=== PATIENT | female | born 1985 | race American Indian/Alaskan Native ===

== ENCOUNTER 2017-12-01 11:44 | Emergency (ER) | payer MEDICAID ==
--- NOTE | 2017-12-01 12:19 | Emergency Department Report ---
Blank Doc - Documentation Documentation: Patient is a 32-year-old Female who states she took a test at home several weeks ago that was positive she went for her first [facility] [facility] appointment was sent here because of vaginal bleeding. Patient states she is initially had some mild spotting but now is having some heavier bleeding. Patient states he passed one nickel size clot this morning. Patient is a pressure sensation in the suprapubic region. Patient's approximate 4-5 weeks . Patient is denying any fevers chills nausea vomiting diarrhea at this time. Patient will have a beta Quant ultrasound urinalysis and ABO Rh done
[2017-12-01 13:08] LABS: Bacteria,Urine 1+ /HPF (Negative); Bilirubin,Urine NEG (Negative); Blood,Urine NEG (Negative); Color,Urine Yellow (Yellow); Mucus,Urine 1+ /HPF; Protein,Urine <15 mg/dL mg/dL (Negative); Urobilinogen,Urine < 2.0 mg/dL (<2.0)
--- NOTE | 2017-12-01 15:51 | Ultrasound Report ---
FINAL REPORT EXAM: US OB TRANSVAGINAL HISTORY: preg with vag bleeding . LMP unknown TECHNIQUE: Ultrasound of the pelvis using transabdominal and transvaginal imaging PRIORS: None. FINDINGS: Uterus: Uterus is enlarged in size and heterogeneous in echogenicity. The uterus measures cm in size. Within the anterior left midbody, there is a 3.2 x 2.4 x 3.0 cm heterogeneous hypoechoic fibroid. In the posterior fundus, there is a heterogeneous hypoechoic fibroid measuring 4.4 x 3.8 x 4.2 cm. The endometrial stripe is 28 mm in thickness which is thickened. There is a single early viable intrauterine gestation noted. Intrauterine gestation: There is a single intrauterine gestation identified with both a pole and yolk sac. heart rate is monitored at 116 BPM using M-mode doppler. [place]-rump length measurement of 0.57 cm corresponds to estimated age 6 weeks 3 days with EDC 07/24/2018. Ovaries: Both ovaries appear enlarged in size and normal in echogenicity with normal blood flow bilaterally. The right ovary measures 4.1 x 2.8 x 1.6 cm and the left ovary measures 6.1 x 4.6 x 3.7 cm in size. Within the right ovary, there is a 1.8 x 1.2 x 1.6 cm hypoechoic focus, probably a complex cyst. There is a minimally complex cyst containing internal debris in the left ovary measuring 4.1 x 3.5 x 4.1 cm. Other: There is no evidence for solid adnexal mass is seen. There is no free fluid in the cul-de-sac. There is trace free fluid in the right adnexa however. IMPRESSION: 1. single intrauterine viable with an approximate age of 6 weeks 3 days. 2. 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 Bilateral complex cysts in the ovaries.
--- NOTE | 2017-12-01 15:52 | Ultrasound Report ---
FINAL REPORT EXAM: US OB < = 14 WEEKS FETUS HISTORY: preg with vag bleeding . LMP unknown TECHNIQUE: Ultrasound of the pelvis using transabdominal and transvaginal imaging PRIORS: None. FINDINGS: Uterus: Uterus is enlarged in size and heterogeneous in echogenicity. The uterus measures 10.5 x 9.2 x 9.0 cm in size. Within the anterior left midbody, there is a 3.2 x 2.4 x 3.0 cm heterogeneous hypoechoic fibroid. In the posterior fundus, there is a heterogeneous hypoechoic fibroid measuring 4.4 x 3.8 x 4.2 cm. The endometrial stripe is 28 mm in thickness which is thickened. There is a single early viable intrauterine gestation noted. Intrauterine gestation: There is a single intrauterine gestation identified with both a pole and yolk sac. heart rate is monitored at 116 BPM using M-mode doppler. [place]-rump length measurement of 0.57 cm corresponds to estimated age 6 weeks 3 days with EDC 07/24/2018. Ovaries: Both ovaries appear enlarged in size and normal in echogenicity with normal blood flow bilaterally. The right ovary measures 4.1 x 2.8 x 1.6 cm and the left ovary measures 6.1 x 4.6 x 3.7 cm in size. Within the right ovary, there is a 1.8 x 1.2 x 1.6 cm hypoechoic focus, probably a complex cyst. There is a minimally complex cyst containing internal debris in the left ovary measuring 4.1 x 3.5 x 4.1 cm. Other: There is no evidence for solid adnexal mass is seen. There is no free fluid in the cul-de-sac. There is trace free fluid in the right adnexa however. IMPRESSION: 1. single intrauterine viable with an approximate age of 6 weeks 3 days. 2. 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 Bilateral complex cysts in the ovaries. As
--- NOTE | 2017-12-01 16:12 | Emergency Department Report ---
ED Female HPI - General Chief complaint: Vaginal Bleeding Stated complaint: ULTRASOUND Time Seen by Provider: 12/01/17 12:14 Source: patient Mode of arrival: Ambulatory Limitations: No Limitations - History of Present Illness Initial comments: Patient is a 32-year-old Female who states she took a test at home several weeks ago that was positive she went for her first [facility] appointment at [facility] and was sent here because of vaginal bleeding. Patient said that they said they didn't have ultrasound machine so she could should come to the emergency room. Patient states she is initially had some mild spotting but now is having some heavier bleeding. Patient states he passed one nickel size clot this morning. Patient is a pressure sensation in the suprapubic region. Patient's approximate 4-5 weeks . Patient is denying any fevers chills nausea vomiting diarrhea at this time. Denies any back pain. Denies any urinary burning and frequency or urgency. Denies any nausea or vomiting. Pain is located to pelvic area 7 out of 10 cramping and an on and off. No medication taken for pain. Patient denies any vaginal discharge and that she is not concerned for STDs. MD Complaint: vaginal bleeding Onset/Timin -: week(s) Location: suprapubic Radiation: non-radiating Severity: severe Severity scale (0 -10): 7 Quality: cramping Consistency: intermittent Improves with: none Worsens with: none Are you Now?: Yes (per home tests) Last Menstrual Period: 10/22/17 EDC: 07/29/18 Associated Symptoms: vaginal bleeding, abdominal pain. denies: vaginal discharge, nausea/vomiting, fever/chills, headaches, loss of appetite, dysuria, hematuria, rash, seizure, shortness of breath, syncope, weakness - Related Data Sexually active: Yes : 2 Para: 1 (10-year-old child) Home Medications Medication Instructions Recorded Confirmed Last Taken Vit Calc,Iron,Folic 1 each PO DAILY 12/01/17 12/01/17 12/01/17 09:00 [ Vitamins] Previous Rx's Medication Instructions Recorded Last Taken Type Cephalexin [Keflex] 500 mg PO Q12HR 7 Days #14 cap 12/01/17 Unknown Rx Allergies Allergy/AdvReac Type Severity Reaction Status Date / Time No Known Allergies Allergy Unverified 09/09/13 11:51 ED Review of Systems ROS: Stated complaint: ULTRASOUND Other details as noted in HPI Constitutional: denies: chills, fever Eyes: denies: eye discharge ENT: denies: throat pain Respiratory: denies: cough, shortness of breath, SOB with exertion, SOB at rest , stridor, wheezing Cardiovascular: denies: chest pain, palpitations, edema, syncope Gastrointestinal: abdominal pain. denies: nausea, vomiting, diarrhea Genitourinary: other (vaginal bleed and). denies: urgency, dysuria, frequency, hematuria, discharge, dyspareunia Musculoskeletal: denies: back pain, joint swelling, arthralgia, myalgia Skin: denies: rash, lesions Neurological: denies: headache, weakness ED Past Medical Hx - Past Medical History Previous Medical History?: Yes Additional medical history: endometriosis - Surgical History Past Surgical History?: Yes Additional Surgical History: 3 surgeries for her endometriosis - Family History Family history: hypertension - Social History Smoking Status: Never Smoker Substance Use Type: Marijuana - Medications Home Medications: Home Medications Medication Instructions Recorded Confirmed Last Taken Type Cephalexin [Keflex] 500 mg PO Q12HR 7 Days #14 cap 12/01/17 Unknown Rx Vit Calc,Iron,Folic 1 each PO DAILY 12/01/17 12/01/17 12/01/17 09:00 History [ Vitamins] ED Physical Exam - General Limitations: No Limitations General appearance: alert, in no apparent distress - Head Head exam: Present: atraumatic, normocephalic, normal inspection - Eye Eye exam: Present: normal appearance, PERRL, EOMI Pupils: Present: normal accommodation - ENT ENT exam: Present: normal exam, normal orophraynx, mucous membranes moist, TM's normal bilaterally, normal external ear exam - Neck Neck exam: Present: normal inspection, full ROM. Absent: tenderness, meningismus, lymphadenopathy - Respiratory Respiratory exam: Present: normal lung sounds bilaterally. Absent: respiratory distress, chest wall tenderness, accessory muscle use - Cardiovascular Cardiovascular Exam: Present: regular rate, normal rhythm, normal heart sounds. Absent: systolic murmur, diastolic murmur - GI/Abdominal GI/Abdominal exam: Present: soft, normal bowel sounds. Absent: distended, tenderness, guarding, rebound, rigid, organomegaly, mass, bruit, pulsatile mass , hernia - Extremities Exam Extremities exam: Present: normal inspection, full ROM, normal capillary refill , other (no clubbing, cyanosis or edema. +2 pulses to all extremities and no neurovascular compromise). Absent: tenderness, pedal edema, joint swelling, calf tenderness - Back Exam Back exam: Present: normal inspection, full ROM, other (ambulates without any difficulties). Absent: tenderness, CVA tenderness (R), CVA tenderness (L), muscle spasm, paraspinal tenderness, vertebral tenderness, rash noted - Neurological Exam Neurological exam: Present: alert, oriented X3, normal gait - Psychiatric Psychiatric exam: Present: normal affect, normal mood - Skin Skin exam: Present: warm, dry, intact, normal color. Absent: rash ED Course Vital Signs 12/01/17 11:49 Temperature 97.7 F Pulse Rate 69 Respiratory 18 Rate Blood Pressure 116/74 O2 Sat by Pulse 100 Oximetry - Reevaluation(s) Reevaluation #1: 12/01/17 16:53 Patient stable throughout ED stay ED Medical Decision Making - Lab Data Lab Results 12/01/17 12/01/17 12/01/17 Range/Units 12:40 12:42 12:42 HCG, Quant [id number] H (0-4) mIU/mL Urine Color Yellow (Yellow) Urine Turbidity Clear (Clear) Urine pH 7.0 (5.0-7.0) Ur Specific [place] 1.019 (1.003-1.030) Urine Protein <15 mg/dl (Negative) mg/dL Urine Glucose (UA) Neg (Negative) mg/dL Urine Ketones Tr (Negative) mg/dL Urine Blood Neg (Negative) Urine Nitrite Neg (Negative) Urine Bilirubin Neg (Negative) Urine Urobilinogen < 2.0 (<2.0) mg/dL Ur Leukocyte Esterase Tr (Negative) Urine WBC (Auto) 5.0 (0.0-6.0) /HPF Urine RBC (Auto) 3.0 (0.0-6.0) /HPF U Epithel Cells (Auto) 4.0 (0-13.0) /HPF Urine Bacteria (Auto) 1+ (Negative) /HPF Urine Mucus 1+ /HPF Blood Type A POSITIVE Urine culture sent - Radiology Data Radiology results: report reviewed Ultrasound less than 14 weeks OB transabdominal and transvaginal Ultrasound Report Signed Patient: TRENT JACOBSON MR#: [id number] : 1985 Acct:[id number] Age/Sex: 32 / F ADM Date: 12/01/17 Loc: ED Attending Dr: Ordering Physician: TIFFANY ANTOINE MD Date of Service: 12/01/17 Procedure(s): US OB transvaginal Accession Number(s): [id number] cc: TIFFANY ANTOINE MD FINAL REPORT EXAM: US OB TRANSVAGINAL HISTORY: preg with vag bleeding . LMP unknown TECHNIQUE: Ultrasound of the pelvis using transabdominal and transvaginal imaging PRIORS: None. FINDINGS: Uterus: Uterus is enlarged in size and heterogeneous in echogenicity. The uterus measures cm in size. Within the anterior left midbody, there is a 3.2 x 2.4 x 3.0 cm heterogeneous hypoechoic fibroid. In the posterior fundus, there is a heterogeneous hypoechoic fibroid measuring 4.4 x 3.8 x 4.2 cm. The endometrial stripe is 28 mm in thickness which is thickened. There is a single early viable intrauterine gestation noted. Intrauterine gestation: There is a single intrauterine gestation identified with both a pole and yolk sac. heart rate is monitored at 116 BPM using M-mode doppler. [place]-rump length measurement of 0.57 cm corresponds to estimated age 6 weeks 3 days with EDC 07/24/2018. Ovaries: Both ovaries appear enlarged in size and normal in echogenicity with normal blood flow bilaterally. The right ovary measures 4.1 x 2.8 x 1.6 cm and the left ovary measures 6.1 x 4.6 x 3.7 cm in size. Within the right ovary, there is a 1.8 x 1.2 x 1.6 cm hypoechoic focus, probably a complex cyst. There is a minimally complex cyst containing internal debris in the left ovary measuring 4.1 x 3.5 x 4.1 cm. Other: There is no evidence for solid adnexal mass is seen. There is no free fluid in the cul-de-sac. There is trace free fluid in the right adnexa however. IMPRESSION: 1. single intrauterine viable with an approximate age of 6 weeks 3 days. 2. 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 Bilateral complex cysts in the ovaries. Transcribed By: [facility] Dictated By: ELVIS ALTMAN MD Electronically Authenticated By: ELVIS ALTMAN MD Signed Date/Time: 12/01/171546 DD/ 46 TD/TT: 12/01/171546 - Medical Decision Making ED course: This is a 32-year-old female here reporting that she is been having vaginal bleeding for the last week she said it started off light and now it's heavier and passed a small clot. Patient says she went to [facility] and they sent her over here because they said they did not have ultrasound machine. She says she is also having abdominal cramping in with feeling of pressure in her vaginal area. She has a history of endometriosis and ovarian cysts. She then it is today. She says her lites and denies any spotting. She denies 2 para 1. No history of difficult . She is reporting some pelvic cramping on and off. Denies any back pain or nausea or vomiting. Denies any chest pain or shortness of breath. Denies any swelling to legs. She is here to be checked. Patient takes multivitamin and she is in the process of finding an [facility]. Patient was seen and examined by myself. She had OB transabdominal pelvic and transvaginal less than 14 weeks which was dictated by radiologist and report shows Viable single intrauterine as described. Very large subchorionic hemorrhage is suspected as described. heart tone is 152 bpm. at 7 weeks and 3 days and she has left ovarian cyst. Positive quant that correlates with ultrasound. She is O+ blood and UA showing that she has a urinary tract infection with positive white count, positive leukocyte Estrace, positive bacteria and large amount of blood. This is explained to patient and she voiced understanding. I told I'll refer her to OB/ [facility] [employer] that she should call later to schedule an appointment. A/P 1: Threatened miscarriage-patient referred to my [facility] and I told her to refrain from doing any strenuous activity including sexual activity. Patient will be started on vitamin and to discuss continue multivitamin Viable single intrauterine as described. Also with left ovarian cyst. Very large subchorionic hemorrhage is suspected as described. 2: Left ovarian cysts-referred to [facility] 3-Vaginal bleeding-A she reports that this is very light and now only when she wipes. So better 4: Intermittent abdominal cramping : Better. Patient with nontender abdomen 6: Acute cystitis with hematuria-patient is stable and will be given Rocephin and sent home on Keflex. Urine culture sent Patient educated on and also threatened miscarriage. Educated on medication importance of taking vitamins and importance of care. Educated on what signs and symptoms to look for in having a miscarriage and if she has any increase in her vaginal bleeding she is to return to the emergency room. Educated on increasing her fluid intake, importance of taking antibiotic for urinary tract infection, her blood type and her laboratory and ultrasound results. Patient discharged home in stable condition with her family. Vital signs as stated she is a febrile. She is nontoxic in appearance. Referred to my [facility]IZER to see on 12/04/2017. Discharge home a prescription for Keflex and vitamin. Patient voiced understanding the discharge teaching - Differential Diagnosis present miscarriage, ectopic , UTI Critical care attestation.: If time is entered above; I have spent that time in minutes in the direct care of this critically ill patient, excluding procedure time. ED Disposition Clinical Impression: Threatened , Acute cystitis without hematuria, Vaginal bleeding during Abdominal pain Qualifiers: Abdominal location: lower abdomen, unspecified Qualified Code(s): R10.30 - Lower abdominal pain, unspecified Disposition: - TO HOME OR SELFCARE Is pt being admited?: No Does the pt Need Aspirin: No Condition: Stable Instructions: Abdominal Pain in (ED), Threatened Miscarriage (ED), Urinary Tract Infection in Women (ED) Additional Instructions: Please take antibiotic as prescribed for urinary tract infection Follow-up with my [facility] for care. Call today to schedule an appointment if they're not open today then you can call on Monday morning and. Start taking vitamin Please increase fluid intake Avoid doing strenuous activity. If vaginal bleeding in abdominal pain increases, return to the hospital otherwise follow-up with [facility] as recommende Prescriptions: Cephalexin [Keflex] 500 mg PO Q12HR 7 Days #14 cap Referrals: PRIMARY CARE, [Primary Care Provider] - 2-3 Days [facility] [Provider Group] - 12/04/17 [facility] [Provider Group] - 12/04/17 Forms: Work/School Release Form(ED)
[2017-12-01 17:29] VITALS: BP 128/68
== END 2017-12-01 17:29 | disposition home or self-care (01) ==
LOC: ED 11:44
DX: O20.0 Threatened abortion (principal); R10.30 Lower abdominal pain, unspecified; F12.90 Cannabis use, unspecified, uncomplicated; Z3A.01 Less than 8 weeks gestation of pregnancy
CPT/HCPCS: 36415; 76801; 76817; 81001; 84702; 86900; 86901